=== PATIENT | male | born 1970 | race Caucasian/White ===

== ENCOUNTER 2017-07-25 15:34 | Emergency (ER) | payer OTHER ==
[~2017-07-25] VITALS: Ht 180.3 cm; Wt 99.8 kg
[~2017-07-25 15:34] MED LIST: CLEOCIN HCL300 M1 PO; PERCOCET 5-3251 EACH PO
--- NOTE | 2017-07-25 16:51 | ED GENERAL ADULT ---
History of Present Illness General Chief Complaint: General Adult Stated Complaint: FATHER WANTS PT CHECKED FOR DRUGS Source: patient Exam Limitations: no limitations Vital Signs & Intake/Output Vital Signs & Intake/Output Vital Signs Date Time Temp Pulse Resp B/P B/P Pulse O2 O2 Flow FiO2 Mean Ox Delivery Rate 07/25 1720 98.0 82 16 154/88 96 Room Air 07/25 1649 Room Air 07/25 1539 98.1 84 18 164/92 98 Room Air Allergies Coded Allergies: Penicillins (UNKNOWN 01/27/17) Reconcile Medications Clindamycin HCl (Cleocin HCl) 300 MG CAPSULE 1 CAP PO TID ABSCESS Oxycodone HCl/Acetaminophen (Percocet 5-325 MG Tablet) 5 MG-325 MG TABLET 1-2 TAB PO Q6P PRN PAIN Oxycodone HCl/Acetaminophen (Percocet 5-325 MG Tablet) 5 MG-325 MG TABLET 1-2 TAB PO Q6P PRN PAIN Triage Note: PT TO TRIAGE WITH HIS FATHER, PT STATES THAT HE HAS BEEN CLEAN FROM HEROINE USE FOR OVER 2 MONTHS AND THAT HIS DAD FEELS LIKE HE MIGHT BE USING AGAIN, PT DENIES THIS AND STATES THAT HE WANTS A DRUG SCREEN . PT TAKES CLONIDINE THAT IS PRESCRIBED. PT OFFERS NO OTHER COMPLAINTS Triage Nurses Notes Reviewed? yes Onset: Gradual Duration: day(s): Timing: recent history Injury Environment: home Severity: moderate No Modifying Factors: none HPI: Patient offers no complaints. Reports she is primarily here to get a drug screen to prove to his father that he has not been using drugs. Patient denies using any pain medication. Denies using any heroin for the past 2 months. Denies any depression and anxiety. No palpitations or shortness of breath. (Freda Baker) Past History Travel History Traveled to [place] past 21 day No Medical History Any Pertinent Medical History? 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 No (Freda Baker) Review of Systems Review of Systems Constitutional: Reports: no symptoms. Comments Review of systems: See HPI, All other systems negative. Constitutional, no chills fever or weight loss HEENT: No visual changes no sore throat no congestion Cardiovascular: No chest pain ,palpitation , orthopnea or ankle swelling Skin, no jaundice no rashes Respiratory: No dyspnea cough sputum or hemoptysis GI: No nausea no vomiting : No dysuria No hematuria Muscle skeletal: no back pain, no neck pain, Neurologic: No numbness no confusion Psych: No stress anxiety or depression,. Heme/endocrine: No bruising no bleeding no polyuria or polydipsia Immunology: No splenectomy or history of AIDS (Freda Baker) Physical Exam Physical Exam General Appearance: well developed/nourished, no apparent distress, alert, awake , comfortable Comments: Well-developed well-nourished person in no acute distress HEENT: Atraumatic, normocephalic or edema. Neck: Normal inspection Back: Nontender Cardiovascular: Regular rate and rhythms no murmurs rubs or gallops, normal JVP Respiratory: Chest nontender. No respiratory distress.breath sounds clear to auscultation bilaterally Extremity: No edema Neuro: Alert oriented x3 Skin: No appreciable rash on exposed skin, skin is warm and dry. Psych: Mood and affect is normal, memory and judgment is normal. Core Measures ACS in differential dx? No CVA/TIA Diagnosis: No Sepsis Present: No Sepsis Focused Exam Completed? No (Freda Baker) Progress Differential Diagnoses I considered the following diagnoses in my evaluation of the patient: Visit for drug screen Plan of Care: Orders Procedure Date/time Status URINE DRUG SCREEN FOR ER ONLY 07/25 6078 Complete Laboratory Tests 07/25/17 1640: Urine Opiates Screen > 4000.00 H, Methadone Screen < 40, Barbiturate Screen < 60, Ur Phencyclidine Scrn < 6.00, Amphetamines Screen < 100, U Benzodiazepines Scrn < 85, Urine Cocaine Screen < 50, Urine Cannabis Screen < 5.00 07/25/2017 5:32:38 PM patient authorized this provided speak in front of his family member. He was informed that his opiates did come back positive. Patient will follow up with PCP. Educated on not using drugs. Initial ED EKG: none (Gregg PA,Freda) Departure Departure Disposition: HOME OR SELF CARE Condition: Stable Clinical Impression Primary Impression: Positive urine drug screen Referrals: Naomi Mosquera APRN (PCP/Family) Additional Instructions: Follow-up with your primary care physician in the next 5-7 days. Return for worsening symptoms or concerns. Departure Forms: Customer Survey General Discharge Information (Freda Baker) PA/SHADING PAINTER Co-Sign Statement Statement: ED Attending supervision documentation- [] I saw and evaluated the patient. I have also reviewed all the pertinent lab results and diagnostic results. I agree with the findings and the plan of care as documented in the PA's/SHADING PAINTER's documentation. [X] I have reviewed the ED Record and agree with the PA's/SHADING PAINTER's documentation. [] Additions or exceptions (if any) to the PAs/SHADING PAINTER's note and plan are summarized below: [] (Anupam Lee DO) Critical Care Note Critical Care Note Critical Care Time: non-applicable (Freda Baker)
[2017-07-25 17:20] VITALS: BP 154/88
== END 2017-07-25 17:38 ==
LOC: ERH 15:34
DX: Z04.8 Encounter for examination and observation for other specified reasons (principal)
CPT/HCPCS: 80307

== ENCOUNTER 2018-01-22 22:53 | Emergency (ER) | payer OTHER ==
[2018-01-23 00:14] VITALS: BP 130/67
--- NOTE | 2018-01-23 00:36 | ED SKIN/ALLERGY COMPLAINT ---
History of Present Illness General Chief Complaint: Skin Rash/ Abcess Stated Complaint: 2 LUMPS ON CHEST Source: patient Exam Limitations: no limitations Vital Signs & Intake/Output Vital Signs & Intake/Output Vital Signs Date Time Temp Pulse Resp B/P B/P Pulse O2 O2 Flow FiO2 Mean Ox Delivery Rate 01/23 0014 98.7 96 18 130/67 96 Room Air Allergies Coded Allergies: Penicillins (UNKNOWN 01/23/18) Reconcile Medications Cephalexin (Keflex) 500 MG CAPSULE 1 CAP PO TID CELLULITIS Clindamycin HCl (Cleocin HCl) 300 MG CAPSULE 1 CAP PO TID ABSCESS Oxycodone HCl/Acetaminophen (Percocet 5-325 MG Tablet) 5 MG-325 MG TABLET 1-2 TAB PO Q6P PRN PAIN Oxycodone HCl/Acetaminophen (Percocet 5-325 MG Tablet) 5 MG-325 MG TABLET 1-2 TAB PO Q6P PRN PAIN Oxycodone HCl/Acetaminophen (Percocet 5-325 MG Tablet) 5 MG-325 MG TABLET 1-2 TAB PO Q6P PRN PAIN Sulfamethoxazole/Trimethoprim (Bactrim Ds Tablet) 800 MG-160 MG TABLET 1 TAB PO BID CELLULITIS Triage Note: TRIAGE: PATIENT TO ER FROM HOME REPORTING "TWO LUMPS ON CHEST X 3 DAYS." NOTED W/ ABCESS X2 TO CHEST, ONE APPROX SIZE OF BASEBALL AND ONE APPROX GOLFBALL SIZED. WHITE NOTED TO MIDDLE TOP OF EACH SITE, REDNESS TO ENTIRE SITE. Triage Nurses Notes Reviewed? yes HPI: Patient presents to the emergency department with 2 abscesses on his chest. Patient first noticed them 2 days ago. Positive pain and swelling and redness. No fevers or chills. The pain is aching and throbbing in nature. There is no radiation outside of the reddened area. The pain increases when he touches the area. He rates the pain at 8 out of 10. Patient has no other complaints. Past History Travel History Traveled to [place] past 21 day No Medical History Any Pertinent Medical History? 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 No Review of Systems Review of Systems Constitutional: Reports: no symptoms. EENTM: Reports: no symptoms. Respiratory: Reports: no symptoms. Cardiovascular: Reports: no symptoms. GI: Reports: no symptoms. Genitourinary: Reports: no symptoms. Musculoskeletal: Reports: no symptoms. Skin: Reports: see HPI. Neurological/Psychological: Reports: no symptoms. Immunologic/Allergic: Reports: no symptoms. Physical Exam Physical Exam General Appearance: well developed/nourished, alert, awake, mild distress Eyes: Bilateral: PERRL, EOMI. Neck: normal inspection, supple, full range of motion, NO LAD Respiratory: normal breath sounds, no respiratory distress, lungs clear Cardiovascular: regular rate/rhythm, normal peripheral pulses Extremities: normal inspection, normal capillary refill, normal range of motion, NO AXILLARY ADENOPATHY Neurologic/Psych: no motor/sensory deficits, awake, alert, oriented x 3, normal gait, normal mood/affect Skin: ERYTHEMA Skin Problem Location: torso Skin Problem Character: INDURATED, NO FLUCTUENCE Lymphatic: no anterior cervical carlos Progress Differential Diagnosis: abscess/cellulitis Plan of Care: Current Medications Sig/Anthony Start time Last Medication Dose Stop Time Status Admin Ceftriaxone Sodium 1,000 MG ONCE ONE 01/23 45 UNVr (Rocephin) 01/23 46 Departure Departure Disposition: HOME OR SELF CARE Condition: Stable Clinical Impression Primary Impression: Abscess Secondary Impressions: Cellulitis Referrals: Naomi Mosquera APRN (PCP/Family) Additional Instructions: TAKE ANTIBIOTICS PRESCRIBED RETURN IN 2 DAYS FOR A RE-CHECK OR SOONER FOR ANY CONCERNS Departure Forms: Customer Survey General Discharge Information Prescriptions: Current Visit Scripts Sulfamethoxazole/Trimethoprim (Bactrim Ds Tablet) 1 TAB PO BID #20 TAB Cephalexin (Keflex) 1 CAP PO TID #30 CAP Oxycodone HCl/Acetaminophen (Percocet 5-325 MG Tablet) 1-2 TAB PO Q6P PRN PAIN #20 TAB
[2018-01-23] MEDS ORDERED: BACTRIM DS TAB1 EACH PO (00:38)
[2018-01-23] MEDS ORDERED: PERCOCET 5-3251 EACH PO (00:38)
[2018-01-23] MEDS ORDERED: KEFLEX500 M1 PO (00:38)
== END 2018-01-23 01:11 ==
LOC: ERH 22:53
DX: L02.213 Cutaneous abscess of chest wall (principal); L03.313 Cellulitis of chest wall
CPT/HCPCS: 96374; J0696